=== PATIENT | female | born 1975 | race Caucasian/White ===

== ENCOUNTER 2017-10-26 14:54 | Emergency (ER) | payer BC ==
[2017-10-26 15:08] VITALS: BP 124/75
--- NOTE | 2017-10-26 15:49 | EDM.PDOC ---
ED HPI GENERAL MEDICAL PROBLEM - General Chief Complaint: Upper Extremity Injury/Pain Stated Complaint: LEFT ARM INJURY Time Seen by Provider: 10/26/17 15:03 Source of Information: Reports: Patient History Limitations: Reports: No Limitations - History of Present Illness INITIAL COMMENTS - FREE TEXT/NARRATIVE: The patient presents with left upper arm pain. She slipped on the ice and landed on her left arm. She did not hurt her head and she had no LOC. She has pain in the proximal humerus and elbow. She is right handed. Onset: Sudden Duration: Hour(s): Quality: Reports: Sharp Severity: Moderate Improves with: Reports: Immobilization Worsens with: Reports: Movement Context: Reports: Trauma (Fell on the ice and landed on her left arm) Associated Symptoms: Reports: No Other Symptoms Left Arm Pain Score (Numeric/FACES): 6 - Related Data Allergies Allergy/AdvReac Type Severity Reaction Status Date / Time No Known Allergies Allergy Verified 10/26/17 15:02 Home Meds: Home Meds . [No Known Home Meds] 03/07/16 [History] Past Medical History - Past Health History Medical/Surgical History: Denies Medical/Surgical History Psychiatric History: Reports: Anxiety - Past Surgical History Female Surgical History: Reports: Section Social & Family History - Family History Family Medical History: Noncontributory - Tobacco Use Smoking Status *Q: Unknown Ever Smoked - Recreational Drug Use Recreational Drug Use: No - Living Situation & Occupation Living situation: Reports: , with Family Occupation: Employed Review of Systems - Review of Systems Review Of Systems: See Below Constitutional: Reports: No Symptoms Eyes: Reports: No Symptoms Ears: Reports: No Symptoms Nose: Reports: No Symptoms Mouth/Throat: Reports: No Symptoms Respiratory: Reports: No Symptoms Cardiovascular: Reports: No Symptoms GI/Abdominal: Reports: No Symptoms Genitourinary: Reports: No Symptoms Musculoskeletal: Reports: Arm Pain (Upper arm) ED EXAM, GENERAL - Physical Exam Exam: See Below Exam Limited By: No Limitations General Appearance: Alert, No Apparent Distress Ears: Normal External Exam Nose: Normal Inspection Head: Atraumatic, Normocephalic Neck: Normal Inspection Respiratory/Chest: No Respiratory Distress, Lungs Clear, Normal Breath Sounds Cardiovascular: Regular Rate, Rhythm, No Edema, No Murmur GI/Abdominal: Soft, Non-Tender, No Organomegaly, No Mass Extremities: Other (Pain upon palpation to the proximal humerus and elbow. Good sensation and pulses distally.) Course - Vital Signs Last Recorded V/S: Last Vital Signs Temp 98.5 F 10/26/17 15:06 Pulse 72 10/26/17 15:06 Resp 18 10/26/17 15:06 BP 124/75 10/26/17 15:06 Pulse Ox 100 10/26/17 15:06 - Orders/Labs/Meds Orders: Active Orders 24 hr Category Date Time Status Elbow Min 3V Lt [CR] Stat Exams 10/26/17 15:28 Taken Humerus Lt [CR] Stat Exams 10/26/17 15:12 Taken - Re-Assessments/Exams Free Text/Narrative Re-Assessment/Exam: 10/26/17 15:47 The x-ray of her humerus and elbow show no fracture. Departure - Departure Time of Disposition: 15:50 Disposition: Home, Self-Care 01 Condition: Good Clinical Impression: Fall Qualifiers: Encounter type: initial encounter Qualified Code(s): W19.XXXA - Unspecified fall, initial encounter Contusion of left elbow Qualifiers: Encounter type: initial encounter Qualified Code(s): S50.02XA - Contusion of left elbow, initial encounter Contusion of left shoulder Qualifiers: Encounter type: initial encounter Qualified Code(s): S40.012A - Contusion of left shoulder, initial encounter - Discharge Information Referrals: PCP,None [Primary Care Provider] - Additional Instructions: Ice the areas that hurt for 15 minutes a couple times per day for 2 days. Take tylenol or motrin for pain. - My Orders Last 24 Hours: My Active Orders 10/26/17 15:12 Humerus Lt [CR] Stat 10/26/17 15:28 Elbow Min 3V Lt [CR] Stat - Assessment/Plan Last 24 Hours: My Active Orders 10/26/17 15:12 Humerus Lt [CR] Stat 10/26/17 15:28 Elbow Min 3V Lt [CR] Stat
--- NOTE | 2017-10-27 10:43 | CR ---
Left elbow: Four views of the left elbow were obtained. Comparison: No previous study. Question of elevation of the anterior fat pad is seen. Joint effusion is possible. No fracture, dislocation or other bony abnormality is identified. Impression: 1. Possible joint effusion. 2. No acute bony abnormality is identified. Diagnostic code #3
--- NOTE | 2017-10-27 10:43 | CR ---
Left humerus: Two views of the left humerus were obtained. Comparison: No previous study. No fracture or other abnormality is appreciated. Impression: 1. No abnormality is identified on two-view left humerus study. Diagnostic code #1
== END 2017-10-26 16:03 | disposition home or self-care (01) ==
LOC: JD.ED 14:54
DX: S50.02XA Contusion of left elbow, initial encounter (principal); S40.012A Contusion of left shoulder, initial encounter; W00.0XXA Fall on same level due to ice and snow, initial encounter
CPT/HCPCS: 73060-26-LT; 73060-LT; 73080-26-LT; 73080-LT; 99283

== ENCOUNTER 2018-06-25 07:34 | Emergency (ER) | payer BC ==
[2018-06-25 07:46] VITALS: BP 127/90
--- NOTE | 2018-06-25 08:45 | EDM.PDOC ---
ED HPI GENERAL MEDICAL PROBLEM - General Chief Complaint: Lower Extremity Injury/Pain Stated Complaint: LEFT KNEE PAIN Time Seen by Provider: 06/25/18 07:52 Source of Information: Reports: Patient, RN Notes Reviewed - History of Present Illness INITIAL COMMENTS - FREE TEXT/NARRATIVE: 42 female injured her knee tonight half days ago. Last Monday evening she was in some type of a "bounce house" and someone fell onto her left knee. States she did feel sensation of a cough. In-stent discomfort but not horrible. Was still able to ambulate but with some discomfort. The knee was quite painful the last 2 days with motion and weightbearing, somewhat better today but still annoying, still moderately bothersome with motion and weightbearing. The pain is primarily the lateral aspect of the knee more than anywhere else. No foot or ankle injury. No major pain at rest. Left Knee Pain Score (Numeric/FACES): 5 - Related Data Allergies Allergy/AdvReac Type Severity Reaction Status Date / Time No Known Allergies Allergy Verified 06/25/18 07:43 Home Meds: Home Meds . [No Known Home Meds] 03/07/16 [History] Past Medical History - Past Health History Medical/Surgical History: Denies Medical/Surgical History Psychiatric History: Reports: Anxiety - Past Surgical History Female Surgical History: Reports: Section Social & Family History - Family History Family Medical History: Noncontributory - Tobacco Use Smoking Status *Q: Never Smoker - Living Situation & Occupation Living situation: Reports: , with Family Occupation: Employed Review of Systems - Review of Systems Review Of Systems: See Below Constitutional: Reports: No Symptoms Mouth/Throat: Reports: No Symptoms Respiratory: Denies: Shortness of Breath Cardiovascular: Denies: Chest Pain GI/Abdominal: Denies: Abdominal Pain Musculoskeletal: Reports: Joint Pain (Left knee) Neurological: Reports: No Symptoms. Denies: Numbness, Tingling ED EXAM, GENERAL - Physical Exam Exam: See Below General Appearance: Alert, No Apparent Distress Head: Atraumatic Neck: Supple Respiratory/Chest: No Respiratory Distress Extremities: Joint Swelling (Very mild swelling lateral aspect left knee, moderate localized tenderness lateral aspect left knee, mild pain with flexion and extension, joints stable, no effusion, knee otherwise nontender). No: Leg Pain Neurological: Alert, Oriented, No Motor/Sensory Deficits Skin Exam: Warm, Dry, Normal Color Course - Vital Signs Last Recorded V/S: Last Vital Signs Temp 98.0 F 06/25/18 07:43 Pulse 98 06/25/18 07:43 Resp 16 06/25/18 07:43 BP 127/90 06/25/18 07:43 Pulse Ox 97 06/25/18 07:43 - Orders/Labs/Meds Orders: Active Orders 24 hr Category Date Time Status Knee Min 4V Lt [CR] Stat Exams 06/25/18 07:59 Taken - Re-Assessments/Exams Free Text/Narrative Re-Assessment/Exam: 06/25/18 09:13 X-rays of the knee?no fracture Departure - Departure Time of Disposition: 08:43 Disposition: Home, Self-Care 01 Condition: Fair Clinical Impression: Left knee sprain Qualifiers: Encounter type: initial encounter Involved ligament of knee: unspecified ligament Qualified Code(s): S83.92XA - Sprain of unspecified site of left knee, initial encounter - Discharge Information Instructions: Knee Sprain, Adult, [id number] Referrals: PCP,None [Primary Care Provider] - Forms: ED Department Discharge Additional Instructions: Almas wrap left knee as needed, ice packs as needed for swelling, rest and elevate knee as much as possible, this will get much better over the next 3-5 days. Advil or ibuprofen 2-3 times daily as needed. Follow up with your regular medical provider if not back to normal within 7-10 days as expected. - My Orders Last 24 Hours: My Active Orders 06/25/18 07:59 Knee Min 4V Lt [CR] Stat - Assessment/Plan Last 24 Hours: My Active Orders 06/25/18 07:59 Knee Min 4V Lt [CR] Stat
--- NOTE | 2018-06-28 09:15 | CR ---
Left knee: Four views of the left knee were obtained. Comparison: No prior knee exam. Mild medial joint space narrowing is seen. Lateral joint space is preserved. No joint effusion is seen. No fracture or other abnormality is seen. Impression: 1. Mild medial joint space narrowing. 2. Left knee exam is otherwise unremarkable. Diagnostic code #2
== END 2018-06-25 08:55 | disposition home or self-care (01) ==
LOC: JD.ED 07:34
DX: S83.92XA Sprain of unspecified site of left knee, initial encounter (principal); W50.0XXA Accidental hit or strike by another person, initial encounter
CPT/HCPCS: 73564-LT; 99283